=== PATIENT | female | born 1980 ===

== ENCOUNTER 2016-02-15 11:15 | Emergency (ER) | payer BC ==
[2016-02-15 12:38] VITALS: BP 107/64
--- NOTE | 2016-02-15 13:04 | UC ---
Elbow Pain - HPI Summary HPI Summary: WHILE WORKING OUT TODAY PT WAS DOING HANDSTANDS. WHILE UPSIDE DOWN WITH ALL HER WEIGHT ON HER ARMS AND ELBOWS LOCKED SHE HEARD AND FELT A POP. NOW HAS SOME PAIN WITH MOVEMENT. - History of Current Complaint Chief Complaint: UCUpperExtremity Stated Complaint: LEFT ELBOW PAIN Time Seen by Provider: 02/15/16 12:55 Hx Obtained From: Patient Hx Last Menstrual Period: 3 mo continuious pill Onset/Duration: Hours, Still Present Severity Initially: Moderate Severity Currently: Moderate Pain Intensity: 6 Pain Scale Used: 0-10 Numeric Location Of Pain: Is Discrete @ - LEFT ELBOW Character: Sharp Aggravating Factor(s): Movement Alleviating Factor(s): Rest Associated Signs And Symptoms: Positive: Negative - Allergies/Home Medications Allergies/Adverse Reactions: Allergies Allergy/AdvReac Type Severity Reaction Status Date / Time No Known Allergies Allergy Verified 02/15/16 12:38 Home Medications: Home Medications Drospirenone-Ethinyl Estradiol [Eliza 3-0.02 mg] 1 tab PO 02/15/16 [History] Propranolol TAB* [Inderal TAB*] 30 mg PO DAILY 02/15/16 [History Confirmed 02/14] PMH/Surg Hx/FS Hx/Imm Hx Previously Healthy: Yes Endocrine History Of: Denies: Diabetes, Thyroid Disease Cardiovascular History Of: Denies: Cardiac Disorders, Hypertension Respiratory History Of: Denies: COPD, Asthma GI/ History Of: Denies: Ulcer - Surgical History Surgical History: Yes Surgery Procedure, Year, and Place: ankle - Family History Known Family History: Negative: Hypertension - Social History Alcohol Use: Rare Substance Use Type: None Smoking Status (MU): Never Smoked Tobacco Review of Systems Constitutional: Negative Skin: Negative Respiratory: Negative Cardiovascular: Negative Gastrointestinal: Negative Musculoskeletal: Arthralgia, Decreased ROM All Other Systems Reviewed And Are Negative: Yes Physical Exam Triage Information Reviewed: Yes Appearance: Well-Appearing, No Pain Distress, Well-Nourished Vital Signs: Initial Vital Signs Temp 99.3 F 02/15/16 12:32 Pulse 67 02/15/16 12:32 Resp 18 02/15/16 12:32 BP 107/64 02/15/16 12:32 Pulse Ox 99 02/15/16 12:32 Vital Signs Reviewed: Yes Eyes: Positive: Conjunctiva Clear ENT: Positive: Hearing grossly normal Neck: Positive: Supple Respiratory: Positive: No respiratory distress, No accessory muscle use Cardiovascular: Positive: Pulses Normal Abdomen Description: Positive: Soft Musculoskeletal: Positive: No Edema, ROM Limited @ - LEFT ELBOW, Other: - TTP PROXIMAL LEFT ELBOW Neurological: Positive: Alert Psychological: Positive: Age Appropriate Behavior Skin: Negative: rashes Diagnostics - Radiology LEFT ELBOW XRAY Xray Interpretation: No Acute Changes Radiology Interpretation Completed By: Radiologist Elbow Pain Course/Dx - Differential Dx/Diagnosis Provider Diagnoses: LEFT ELBOW SPRAIN Discharge - Discharge Plan Condition: Stable Disposition: HOME Patient Education Materials: Elbow Sprain (ED) Referrals: Giovanna Singh MD [Medical Doctor] - If Needed Additional Instructions: XRAY TODAY NEGATIVE FOR FRACTURE OR DISLOCATION. WEAR THE SLING FOR COMFORT NEEDED. REST, ICE, COMPRESS. OTC MEDS NEEDED. SEEK FOLLOW-UP IF YOUR SYMPTOMS DO NOT IMPROVE EXPECTED OVER THE NEXT 1-2 WEEKS.
--- NOTE | 2016-02-15 13:33 | RAD ---
Indication: Left elbow pain. 4 views of left elbow demonstrates no fracture. No evidence of joint effusion is noted. IMPRESSION: No fracture of the left elbow is noted.
== END 2016-02-15 14:09 | disposition home or self-care (01) ==
LOC: UCEAST 11:15
DX: S53.402A Unspecified sprain of left elbow, initial encounter (principal); X58.XXXA Exposure to other specified factors, initial encounter; Y93.89 Activity, other specified; Y92.9 Unspecified place or not applicable
CPT/HCPCS: 99212; G0463